=== PATIENT | male | born 1940 | race Caucasian/White ===

== ENCOUNTER 2018-02-07 05:49 | Day surgery (SDC) | payer MEDICARE, OTHER ==
[2018-02-07] MEDS ORDERED: DIPRIVAN 200 MG/20 ML IV ONE (05:50)
[2018-02-07] MEDS ORDERED: Ketamine HCl 50 MG/ML IV ONE (05:50)
[2018-02-07] MEDS ORDERED: Lactated Ringers 1,000 ML IV SCH (06:30)
[2018-02-07 07:04] VITALS: O2SAT 96
[2018-02-07] MEDS ORDERED: Mylicon DROPS ONE (08:43)
[2018-02-07] MEDS ORDERED: Lactated Ringers 1,000 ML IV ONE (08:43)
[2018-02-07 09:37] VITALS: BP 146/79; PULSE 59
--- NOTE | 2018-02-07 10:57 | OP ---
SURGERY DATE/TIME: 02/07/2018 0803 PREOPERATIVE DIAGNOSIS: Chronic rectal bleeding. POSTOPERATIVE DIAGNOSIS: Sigmoid diverticulosis otherwise normal colon. PROCEDURE: Colonoscopy. SURGEON: Dr. Casarez. ANESTHESIA: MAC. Medications given by anesthesia department. HISTORY: The patient is a 77 year-old white male patient who reports he has been having problems with intermittent rectal bleeding over the past 15 years. He reports it has gotten worse recently. He therefore felt the need to have endoscopic evaluation. He did have a colonoscopy 15 years ago which was normal. The patient reappraised of the risks of the procedure including the risk of perforation, phlebitis, untoward reaction to medication, bleeding, and missed lesions. The patient verbalized his understanding and desired to have the procedure performed. DESCRIPTION OF PROCEDURE: The patient was given the medications by the anesthesia department. He had continuous pulse oximetry, ECG monitoring, intermittent blood pressure monitoring and tidal CO2 monitoring during the examination. He was placed in the left lateral decubitus position. A digital rectal examination was performed and revealed normal anal sphincter tone, no masses and normal prostate. The flexible Olympus pediatric colonoscope was used to intubate the rectum. A view of the colon was developed sequentially to the cecum including a short distance into the terminal ileum. Upon insertion and withdrawal, including a retroflex view in the rectum, no mucosal lesions were noted other than the moderate sigmoid diverticula. The scope was removed from the patient who tolerated the procedure well and was sent back to OP recovery in good condition. The prep was noted to be good.
== END 2018-02-07 09:35 | disposition home or self-care (01) ==
LOC: SDC 05:49
PROVIDERS: ATTEND Family Medicine
DX: K62.5 Hemorrhage of anus and rectum (principal); K57.30 Diverticulosis of large intestine without perforation or abscess without bleeding; E11.9 Type 2 diabetes mellitus without complications; E78.5 Hyperlipidemia, unspecified; E03.9 Hypothyroidism, unspecified
CPT/HCPCS: 99100; J2704; A9270-GY